=== PATIENT | male | born 1980 | race Caucasian/White ===

== ENCOUNTER 2020-12-22 13:18 | Emergency (ER) | payer OTHER ==
[2020-12-22 14:32] LABS: HEMOGLOBIN 13.8 gm/dl (14.0-17.5); RED BLOOD COUNT 4.72 M/UL (4.20-5.50)
[2020-12-22 14:58] LABS: BUN/CREATININE RATIO 12 (0-10)
[2020-12-22] MEDS ORDERED: VENTOLIN HFA 66.7 GM INH (15:31)
[2020-12-22] MEDS ORDERED: DOXYCYCLINE HY100 M2 PO (15:31)
== END 2020-12-22 15:37 | disposition home or self-care (01) ==
LOC: ER1 13:18
PROVIDERS: Physician Assistant Medical
DX: U07.1 COVID-19 (principal); E11.9 Type 2 diabetes mellitus without complications; I10 Essential (primary) hypertension; F17.220 Nicotine dependence, chewing tobacco, uncomplicated
CPT/HCPCS: 0240U; 71045; 80053; 84484; 85025; 93005; 99283